=== PATIENT | male | born 1945 | race Hispanic/Latino ===

== ENCOUNTER → 2017-06-06 | Outpatient (CLI) | payer MEDICARE, BC | END | disposition home or self-care (01) | LOC: CDC 08:55 | DX: D12.6 Benign neoplasm of colon, unspecified (principal); R94.31 Abnormal electrocardiogram [ECG] [EKG] | CPT/HCPCS: 93000 ==

== ENCOUNTER 2017-06-20 07:27 | Day surgery (SDC) | payer OTHER, BC ==
[~2017-06-20] VITALS: Ht 177.8 cm; Wt 77.1 kg
[~2017-06-20 07:27] MED LIST: LISINOPRIL10 MG PO; SYNTHROID125 MCG PO
[2017-06-20 07:44] VITALS: BP 170/93
[2017-06-20] MEDS ORDERED: PERCOCET 5/31 TABLET PO (09:40)
[2017-06-20] MEDS ORDERED: COLACE100 MG PO (09:41)
[2017-06-20 10:23] VITALS: BP 118/60
[2017-06-20 11:14] VITALS: BP 123/56
== END 2017-06-20 11:15 | disposition home or self-care (01) ==
LOC: SDC 07:27
DX: K64.8 Other hemorrhoids (principal); K62.0 Anal polyp; K64.4 Residual hemorrhoidal skin tags; K62.89 Other specified diseases of anus and rectum; I10 Essential (primary) hypertension; E03.9 Hypothyroidism, unspecified; R94.31 Abnormal electrocardiogram [ECG] [EKG]; R73.03 Prediabetes
CPT/HCPCS: 88304; J0330; J1100; J2250; J2405; J2710; J3010; S0030; S0074